=== PATIENT | female | born 1990 | race Caucasian/White ===

== ENCOUNTER 2017-03-16 05:39 | Day surgery (SDC) | payer MEDICAID ==
[~2017-03-16] VITALS: Ht 165.1 cm; Wt 86.6 kg
[~2017-03-16 05:39] MED LIST: ATARAX 25 MG TA25 MG PO; BUPROPION XL150 MG PO; EFFEXOR XR150 MG PO; TRAZODONE HCL50 MG PO; TYSABRI IV
[2017-03-16 07:31] VITALS: BP 104/72; Ht 165.1 cm; Wt 86.6 kg
[2017-03-16] MEDS ORDERED: HYDROCODON-ACE1 EAC7 PO (09:35)
--- NOTE | 2017-03-16 11:37 | NUR ---
1130 DISCHARGE INSTRUCTIONS COMPLETE. PRESCRIPTION FOR [place] GIVEN. ESCORTED OUT ACCOMPANIED BY HER .
== END 2017-03-16 11:30 | disposition home or self-care (01) ==
LOC: D.OPS 05:39 → D.PAN 08:00 → D.OPS 08:00
DX: G35 Multiple sclerosis (principal); Z01.812 Encounter for preprocedural laboratory examination

== ENCOUNTER 2017-09-04 01:01 | Emergency (ER) | payer MEDICAID ==
[2017-03-16 07:31] VITALS: BMI 31.8
[~2017-09-04 01:01] MED LIST changes: +HYDROCODON-ACE1 EAC7 PO
[2017-09-04 01:22] LABS: APPEARANCE CLEAR (CLEAR); BASOPHILS 0.2 % (0-2); BILIRUBIN NEGATIVE (NEGATIVE); COLOR YELLOW (YELLOW); EOSINOPHILS 1.4 % (0-7); GLUCOSE NEGATIVE (NEGATIVE); HEMATOCRIT 33.7 % (36.0-48.0); HEMOGLOBIN 11.6 g/dL (12-16); IMMATURE GRANULOCYTES 0.3 % (0-5); KETONE NEGATIVE (NEGATIVE); LYMPHOCYTES 36.4 % (15-50); MCH 28.6 pg (26.0-34.0); MCHC 34.4 g/dL (31.0-37.0); MCV 83.2 fL (80.0-100.0); MEAN PLATELET VOLUME 10.3 fL (7.4-10.4); MONOCYTES 9.5 % (2-11); NEUTROPHILS 52.2 % (40-80); NITRITE NEGATIVE (NEGATIVE); PLATELET COUNT 134 10x3/uL (130-400); PROTEIN NEGATIVE (NEGATIVE); RBC 4.05 10x6/uL (4.00-5.40); RDW 13.5 % (11.5-14.5); SPECIFIC GRAVITY 1.015 (1.005-1.020); WBC 9.4 10x3/uL (4.8-10.8)
[2017-09-04 01:33] LABS: HCG SERUM NEGATIVE (NEGATIVE)
[2017-09-04 02:46] LABS: ALBUMIN 3.8 g/dL (3.4-5.0); ALKALINE PHOSPHATASE 74 U/L (46-116); ALT (SGPT) 21 U/L (10-68); AMYLASE - SERUM 50 U/L (25-115); BILIRUBIN - TOTAL 0.43 mg/dL (0.2-1.3); CALC OSMOLALITY 275 mosm/kg (275-300); CALCIUM 8.4 mg/dL (8.5-10.1); CARBON DIOXIDE 30.2 mmol/L (21.0-32.0); CHLORIDE - SERUM 102 mmol/L (98-107); CREATININE - SERUM 0.8 mg/dL (0.6-1.3); GLUCOSE 91 mg/dL (74-106); LIPASE 190 U/L (73-393); POTASSIUM - SERUM 3.7 mmol/L (3.5-5.1); PROTEIN - SERUM 6.9 g/dL (6.4-8.2); SODIUM 138 mmol/L (136-145); UREA NITROGEN 12 mg/dL (7-18); eGFR NON AFRICAN AMERICAN 90 mL/min (90-120)
== END 2017-09-04 03:25 | disposition home or self-care (01) ==
LOC: D.ER 01:01
PROVIDERS: Emergency Medicine
DX: R10.9 Unspecified abdominal pain (principal); D64.9 Anemia, unspecified; G35 Multiple sclerosis

== ENCOUNTER 2017-12-11 00:09 | Emergency (ER) | payer MEDICAID ==
[2017-03-16 07:31] VITALS: BMI 31.8
== END 2017-12-11 01:49 | disposition home or self-care (01) ==
LOC: D.ER 00:09
DX: R07.89 Other chest pain (principal); G35 Multiple sclerosis

== ENCOUNTER → 2017-12-15 09:31 | Outpatient (CLI) | payer MEDICAID ==
[2017-03-16 07:31] VITALS: BMI 31.8
== END | disposition home or self-care (01) ==
LOC: D.SP 12-14 09:00
DX: T82.898A Other specified complication of vascular prosthetic devices, implants and grafts, initial encounter (principal); Z01.812 Encounter for preprocedural laboratory examination

== ENCOUNTER 2017-12-19 09:55 | Day surgery (SDC) | payer MEDICAID ==
[~2017-12-19] VITALS: Ht 165.1 cm; Wt 86.6 kg
[2017-12-19 10:27] VITALS: Ht 165.1 cm; Wt 86.6 kg
[2017-12-19 11:05] LABS: HEMATOCRIT 31.8 % (36.0-48.0); HEMOGLOBIN 10.8 g/dL (12-16); MCH 28.1 pg (26.0-34.0); MCV 82.6 fL (80.0-100.0); RBC 3.85 10x6/uL (4.00-5.40); RDW 13.5 % (11.5-14.5)
[2017-12-19] MEDS ORDERED: HYDROCODON-ACE1 EAC7 PO (16:54)
== END 2017-12-19 19:15 | disposition home or self-care (01) ==
LOC: D.OPS 09:55 → D.PAN 13:00 → D.OPS 13:00
PROVIDERS: Anesthesiology
DX: G35 Multiple sclerosis (principal); T82.594A Other mechanical complication of infusion catheter, initial encounter; Z01.812 Encounter for preprocedural laboratory examination

== ENCOUNTER 2017-12-21 10:03 | Emergency (ER) | payer MEDICAID ==
[2017-12-19 10:27] VITALS: BMI 31.8
[2017-12-21 10:48] LABS: BASOPHILS 0.1 % (0-2); EOSINOPHILS 1.5 % (0-7); HEMATOCRIT 34.1 % (36.0-48.0); HEMOGLOBIN 11.7 g/dL (12-16); IMMATURE GRANULOCYTES 0.2 % (0-5); LYMPHOCYTES 28.8 % (15-50); MCH 28.6 pg (26.0-34.0); MCHC 34.3 g/dL (31.0-37.0); MCV 83.4 fL (80.0-100.0); MEAN PLATELET VOLUME 9.9 fL (7.4-10.4); MONOCYTES 8.9 % (2-11); NEUTROPHILS 60.5 % (40-80); PLATELET COUNT 136 10x3/uL (130-400); RBC 4.09 10x6/uL (4.00-5.40); RDW 13.9 % (11.5-14.5)
[2017-12-21 10:50] LABS: WBC 8.8 10x3/uL (4.8-10.8)
[2017-12-21 10:57] LABS: PROTIME 12.8 SECONDS (11.6-15.0)
[2017-12-21 10:59] LABS: D-DIMER-QUANTITATIVE 0.69 ug/mLFEU (0.20-0.54)
[2017-12-21 11:30] LABS: ALBUMIN 3.5 g/dL (3.4-5.0); ALKALINE PHOSPHATASE 74 U/L (46-116); ALT (SGPT) 20 U/L (10-68); CALC OSMOLALITY 273 mosm/kg (275-300); CALCIUM 8.4 mg/dL (8.5-10.1); CARBON DIOXIDE 28.4 mmol/L (21.0-32.0); CHLORIDE - SERUM 104 mmol/L (98-107); CREATININE - SERUM 0.8 mg/dL (0.6-1.3); GLUCOSE 103 mg/dL (74-106); SODIUM 138 mmol/L (136-145); UREA NITROGEN 6 mg/dL (7-18); eGFR NON AFRICAN AMERICAN 90 mL/min (90-120)
[2017-12-21 11:35] LABS: CREATINE KINASE 89 UL (21-215); LIPASE 126 U/L (73-393); PRO BNP 34 pg/mL (0-125); TROPONIN-I < 0.017 ng/mL (0.000-0.060)
== END 2017-12-21 14:30 | disposition home or self-care (01) ==
LOC: D.ER 10:03
PROVIDERS: Nurse Practitioner Family
DX: G89.18 Other acute postprocedural pain (principal); R07.89 Other chest pain; R00.0 Tachycardia, unspecified

== ENCOUNTER 2018-05-20 17:58 | Emergency (ER) | payer MEDICAID ==
[~2018-05-20] VITALS: Ht 165.1 cm; Wt 100.0 kg
[2018-05-20 18:23] VITALS: Ht 165.1 cm; Wt 100.0 kg
[2018-05-20] MEDS ORDERED: IMITREX50 MG PO (18:25)
[2018-05-20 18:44] LABS: APPEARANCE CLEAR (CLEAR); BILIRUBIN NEGATIVE (NEGATIVE); COLOR YELLOW (YELLOW); GLUCOSE NEGATIVE (NEGATIVE); KETONE NEGATIVE (NEGATIVE); NITRITE NEGATIVE (NEGATIVE); PROTEIN NEGATIVE (NEGATIVE); UROBILINOGEN NORMAL (NORMAL)
[2018-05-20 19:03] LABS: BASOPHILS 0.6 % (0-2); EOSINOPHILS 1.3 % (0-7); HEMOGLOBIN 12.8 g/dL (12-16); MCH 28.9 pg (26.0-34.0); MCHC 34.6 g/dL (31.0-37.0); MCV 83.5 fL (80.0-100.0); MEAN PLATELET VOLUME 9.7 fL (7.4-10.4); MONOCYTES 7.6 % (2-11); NEUTROPHILS 39.5 % (40-80); RBC 4.43 10x6/uL (4.00-5.40); RDW 15.1 % (11.5-14.5); WBC 6.2 10x3/uL (4.8-10.8)
[2018-05-20 19:08] LABS: PLATELET COUNT 97 10x3/uL (130-400)
[2018-05-20 19:13] LABS: ALBUMIN 3.7 g/dL (3.4-5.0); ALKALINE PHOSPHATASE 80 U/L (46-116); ALT (SGPT) 67 U/L (10-68); BILIRUBIN - TOTAL 0.55 mg/dL (0.2-1.3); CALC OSMOLALITY 278 mosm/kg (275-300); CALCIUM 9.6 mg/dL (8.5-10.1); CARBON DIOXIDE 27.8 mmol/L (21.0-32.0); CHLORIDE - SERUM 102 mmol/L (98-107); CREATININE - SERUM 0.8 mg/dL (0.6-1.3); GLUCOSE 126 mg/dL (74-106); POTASSIUM - SERUM 3.8 mmol/L (3.5-5.1); PROTEIN - SERUM 7.6 g/dL (6.4-8.2); SODIUM 140 mmol/L (136-145); UREA NITROGEN 7 mg/dL (7-18); eGFR NON AFRICAN AMERICAN 90 mL/min (90-120)
[2018-05-20 20:30] LABS: UDS - AMPHET NEGATIVE QUAL (NEGATIVE); UDS - BARB NEGATIVE QUAL (NEGATIVE); UDS - BENZO NEGATIVE QUAL (NEGATIVE); UDS - COCAINE NEGATIVE QUAL (NEGATIVE); UDS - OPIATE NEGATIVE QUAL (NEGATIVE); UDS - PCP NEGATIVE QUAL (NEGATIVE); UDS - THC NEGATIVE QUAL (NEGATIVE)
[2018-05-20 21:37] VITALS: BP 134/78
== END 2018-05-20 21:37 | disposition home or self-care (01) ==
LOC: D.ER 17:58
PROVIDERS: Family Medicine
DX: R51 Headache (principal); R11.0 Nausea; R50.9 Fever, unspecified; G35 Multiple sclerosis

== ENCOUNTER 2018-11-13 06:07 | Day surgery (SDC) | payer MEDICAID ==
[2018-11-10 08:40] LABS: ANION GAP 13.6 mmol/L (8-16); CALCIUM 8.7 mg/dL (8.5-10.1); CARBON DIOXIDE 25.9 mmol/L (21.0-32.0); CREATININE - SERUM 1.1 mg/dL (0.6-1.3); POTASSIUM - SERUM 3.5 mmol/L (3.5-5.1)
[2018-11-10 08:45] LABS: HEMATOCRIT 37.4 % (36.0-48.0); HEMOGLOBIN 13.1 g/dL (12-16); MCH 28.4 pg (26.0-34.0); MEAN PLATELET VOLUME 10.3 fL (7.4-10.4); RBC 4.62 10x6/uL (4.00-5.40); RDW 13.3 % (11.5-14.5); WBC 5.4 10x3/uL (4.8-10.8)
[~2018-11-13 06:07] MED LIST changes: +IMITREX50 MG PO; +TAPAZOLE 5 MG TA5 MG PO; +TOPAMAX50 MG PO; +VALTREX500 MG PO; +ZOLOFT100 MG PO
[2018-11-13 06:23] VITALS: BP 107/62; BMI 36.5
[2018-11-13] MEDS ORDERED: HYDROCODON-ACE1 EAC7 PO (11:45)
--- NOTE | 2018-11-13 16:33 | OP ---
PATIENT NAME: KALINA HALL MEDICAL RECORD: [id number] :88 LOCATION:D[facility] ADMISSION DATE: SURGEON: MISSY ALTMAN MD DATE OF OPERATION: 11/13/2018 SURGEON: Missy Altman MD PREOPERATIVE DIAGNOSIS: Malfunctioning PowerPort. POSTOPERATIVE DIAGNOSIS: Malfunctioning PowerPort. PROCEDURE PERFORMED: Removal of right subclavian tunneled PowerPort. ANESTHESIA: General. COMPLICATIONS: None. SPECIMENS: PowerPort and tubing. OPERATIVE COURSE: After consent was obtained, the patient was taken to the operating room and placed in supine position on the operating room table. General anesthesia was given. A timeout was taken to confirm the correct patient and procedure. The right chest wall was prepped and draped in typical sterile fashion. A 20 cc local anesthetic were injected into the right chest wall. Previous skin incision was opened using a 15 blade scalpel. Dissection through the subcutaneous tissue continued with electrocautery until the port was identified. The port was circumferentially dissected using electrocautery. Sutures were cut with a 15 blade scalpel. The port and tubing removed intact and sent for permanent pathology. The capsule was excised using electrocautery. The wound was copiously irrigated and suctioned. The subcutaneous was closed with 3-0 Vicryl suture. The skin was closed with 4-0 Monocryl, Mastisol and Steri-Strips. At the end of the case, all needle and instrument counts were correct. No complications occurred. The patient was transferred to the recovery room in satisfactory condition. TRANSINT:[id number] Voice Confirmation ID: [id number] DOCUMENT ID: [id number] MISSY ALTMAN MD at 1633 CC: [id number] DICTATION DATE: 11/13/18 1148 PONY TRIMMER: 11/13/18 1631 [facility] 11/13/18 [place] [id number]
== END 2018-11-13 13:55 | disposition home or self-care (01) ==
LOC: D.OPS 06:07
PROVIDERS: Anesthesiology
DX: T82.9XXA Unspecified complication of cardiac and vascular prosthetic device, implant and graft, initial encounter (principal); Z01.812 Encounter for preprocedural laboratory examination